=== PATIENT | male | born 2000 | race Hispanic/Latino ===

== ENCOUNTER 2022-03-05 11:04 | Outpatient (CLI) | payer BC | END 2022-03-05 11:05 | disposition home or self-care (01) | LOC: CSHRAD 11:04 | PROVIDERS: ATTEND Student in an Organized Health Care Education/Training Program | DX: M79.675 Pain in left toe(s) (principal); S92.422A Displaced fracture of distal phalanx of left great toe, initial encounter for closed fracture ==